=== PATIENT | female | born 1945 | race Caucasian/White ===

== ENCOUNTER 2019-09-12 09:39 | Emergency (ER) | payer MEDICARE, OTHER ==
[~2019-09-12] VITALS: Ht 172.7 cm; Wt 83.9 kg
[2019-09-12] MEDS ORDERED: AMLODIPINE BESY10 MG PO (09:50)
[2019-09-12] MEDS ORDERED: CALCIUM CARBON500 MG PO (09:51)
[2019-09-12] MEDS ORDERED: CELEBREX50 MG PO (09:51)
[2019-09-12] MEDS ORDERED: TESSALON PERLE100 M1 PO (09:51)
[2019-09-12] MEDS ORDERED: CHILDREN'S ASPI81 MG PO (09:51)
[2019-09-12] MEDS ORDERED: MULTI VITAMIN1 EACH PO (09:52)
[2019-09-12] MEDS ORDERED: ELOCON15 GM TOP (09:52)
[2019-09-12] MEDS ORDERED: ESTRACE42.5 GM (09:52)
[2019-09-12] MEDS ORDERED: KLOR-CON 10 ER10 MEQ PO (09:53)
[2019-09-12] MEDS ORDERED: LEVAQUIN 500 M500 M3 PO (09:53)
[2019-09-12] MEDS ORDERED: HYDROCHLOROTH12.5 M2 PO (09:53)
[2019-09-12] MEDS ORDERED: PROTONIX 20 MG20 MG PO (09:53)
[2019-09-12] MEDS ORDERED: MELATONIN3 M1 PO (09:53)
[2019-09-12] MEDS ORDERED: IMITREX100 MG PO (09:53)
[2019-09-12] MEDS ORDERED: AMBIEN 5 MG TABL5 M1 PO (09:54)
[2019-09-12] MEDS ORDERED: ZOCOR 20 MG TAB20 M1 PO (09:54)
[2019-09-12] MEDS ORDERED: TEMOVATE15 GM TOP (09:54)
[2019-09-12] MEDS ORDERED: PREDNISONE 20 M20 M1 PO (09:54)
[2019-09-12] MEDS ORDERED: RHINOCORT ALL8.43 ML NASAL (09:54)
[2019-09-12 10:10] LABS: ABSOLUTE BASOPHILS 0.1 thou/uL (0.0-0.2); ABSOLUTE LYMPHOCYTES 5.3 thou/uL (0.8-5.3); ABSOLUTE MONOCYTES 1.6 thou/uL (0.0-1.2); ABSOLUTE NEUTROPHILS 11.1 thou/uL (1.6-8.1); BASOPHILS 0.7 %; CALCIUM 9.3 mg/dL (8.5-10.1); EOSINOPHILS 0.1 %; HEMATOCRIT 39.4 % (37.0-47.0); LYMPHOCYTES 29.2 %; MONOCYTES 8.6 %; NUCLEATED RBCS 0 /100WBC; PLATELET COUNT* 244 thou/uL (150-400); POLYS 61.4 %; POTASSIUM 3.6 mmol/L (3.5-5.1); RBC 4.19 mil/uL (4.20-5.00); RDW-CV 13.1 % (10.5-14.5); WBC 18.1 thou/uL (4.0-11.0)
[2019-09-12 10:15] LABS: INFLUENZA A ANTIGEN Negative (Negative); INFLUENZA B ANTIGEN Negative (Negative)
[2019-09-12 10:21] LABS: ALBUMIN 3.7 g/dL (3.4-5.0); TOTAL BILIRUBIN 0.4 mg/dL (<0.1-1.0); TOTAL PROTEIN 6.8 g/dL (6.4-8.2)
[2019-09-12 10:56] LABS: APTT 21.9 Seconds (25.0-31.3); PROTIME 10.1 Seconds (9.20-11.50)
[2019-09-12] MEDS ORDERED: IPRAT-ALBUT 0.5-3 ML INH (11:36)
[2019-09-12] MEDS ORDERED: PROMETHAZINE-C473 ML PO (11:36)
[2019-09-12] MEDS ORDERED: NEBULIZER MISCELL (11:36)
[2019-09-12 13:00] VITALS: BP 145/85
--- NOTE | 2019-09-12 14:39 | EKG ---
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1945 Requested By: Lynda Hess Order Number: [id number] MD: Wilmar Morris Measurements Intervals [place] Rate: 60 P: -8 PA: 168 QRS: -30 QRSD: 81 T: 51 QT: 381 QTc: 381 Interpretive Statements Sinus rhythm Left axis deviation Abnormal R-wave progression, late transition No previous ECG available for comparison Electronically Signed On 09-12-2019 14:38:29 BANKING CENTER MANAGER by Wilmar Morris [email or web address] <ELECTRONICALLY SIGNED> By: Wilmar Morris MD, [facility] 09/12/19 1438 0948 09 Wilmar Morris MD, FACC /EPI
== END 2019-09-12 13:00 | disposition home or self-care (01) ==
LOC: M.ERS 09:39
PROVIDERS: Personal Emergency Response Attendant
DX: J06.9 Acute upper respiratory infection, unspecified (principal); G43.909 Migraine, unspecified, not intractable, without status migrainosus; I10 Essential (primary) hypertension; E78.00 Pure hypercholesterolemia, unspecified; M19.90 Unspecified osteoarthritis, unspecified site; K21.9 Gastro-esophageal reflux disease without esophagitis; Z88.0 Allergy status to penicillin; Z88.2 Allergy status to sulfonamides; Z88.1 Allergy status to other antibiotic agents; Z88.8 Allergy status to other drugs, medicaments and biological substances

== ENCOUNTER 2019-09-29 14:20 | Emergency (ER) | payer MEDICARE, OTHER ==
[~2019-09-29] VITALS: Ht 172.7 cm; Wt 83.9 kg
--- NOTE | ~2019-09-29 | EKG ---
[place] [address] ELECTROCARDIOGRAM REPORT Name: AZAEL AMAYA Room: [facility]#: [id number] Admission: 09/29/19 Attend Phys: Discharge: Date of : 47 Date of Service: 09/29/19 1423 Report #: [id number] THIS REPORT FOR: cc: Lucía Simpson MD, Sharon R. 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
[~2019-09-29 14:20] MED LIST: AMBIEN 5 MG TABL5 M1 PO; AMLODIPINE BESY10 MG PO; CALCIUM CARBON500 MG PO; CELEBREX50 MG PO; CHILDREN'S ASPI81 MG PO; ELOCON15 GM TOP; ESTRACE42.5 GM; HYDROCHLOROTH12.5 M2 PO; IMITREX100 MG PO; IPRAT-ALBUT 0.5-3 ML INH; KLOR-CON 10 ER10 MEQ PO; LEVAQUIN 500 M500 M3 PO; MELATONIN3 M1 PO; MULTI VITAMIN1 EACH PO; NEBULIZER MISCELL; PREDNISONE 20 M20 M1 PO; PROMETHAZINE-C473 ML PO; PROTONIX 20 MG20 MG PO; RHINOCORT ALL8.43 ML NASAL; TEMOVATE15 GM TOP; TESSALON PERLE100 M1 PO; ZOCOR 20 MG TAB20 M1 PO
[2019-09-29 14:48] LABS: ABSOLUTE BASOPHILS 0.1 thou/uL (0.0-0.2); ABSOLUTE EOSINOPHILS 0.3 thou/uL (0.0-0.7); ABSOLUTE LYMPHOCYTES 2.5 thou/uL (0.8-5.3); ABSOLUTE MONOCYTES 0.5 thou/uL (0.0-1.2); ABSOLUTE NEUTROPHILS 2.7 thou/uL (1.6-8.1); BASOPHILS 1.1 %; EOSINOPHILS 5.5 %; HEMATOCRIT 37.8 % (37.0-47.0); HEMOGLOBIN 12.9 gm/dL (12.0-15.0); LYMPHOCYTES 40.7 %; MCHC 34.2 g/dL (28.0-37.0); MCV 93.4 fL (80.0-100.0); MONOCYTES 8.4 %; MPV 7.7 fl. (7.2-11.1); NUCLEATED RBCS 0 /100WBC; PLATELET COUNT* 205 thou/uL (150-400); POLYS 44.3 %; RBC 4.04 mil/uL (4.20-5.00); RDW-CV 12.6 % (10.5-14.5); WBC 6.1 thou/uL (4.0-11.0)
[2019-09-29 14:54] LABS: CALCIUM 9.1 mg/dL (8.5-10.1); POTASSIUM 3.7 mmol/L (3.5-5.1)
[2019-09-29 15:10] LABS: ALBUMIN 3.8 g/dL (3.4-5.0); MAGNESIUM 1.9 mg/dL (1.8-2.4); TOTAL BILIRUBIN 0.2 mg/dL (<0.1-1.0); TOTAL PROTEIN 6.6 g/dL (6.4-8.2)
[2019-09-29] MEDS ORDERED: PREDNISONE50 MG PO (16:02)
[2019-09-29] MEDS ORDERED: NORCO 5-325 TA1 EAC1 PO (16:02)
[2019-09-29 16:18] VITALS: BP 118/50
== END 2019-09-29 16:19 | disposition home or self-care (01) ==
LOC: M.ERS 14:20
PROVIDERS: Emergency Medicine Emergency Medical Services
DX: R07.89 Other chest pain (principal); M54.9 Dorsalgia, unspecified; G43.909 Migraine, unspecified, not intractable, without status migrainosus; I10 Essential (primary) hypertension; E78.00 Pure hypercholesterolemia, unspecified; M19.90 Unspecified osteoarthritis, unspecified site; K21.9 Gastro-esophageal reflux disease without esophagitis; Z88.0 Allergy status to penicillin; Z88.1 Allergy status to other antibiotic agents; Z88.5 Allergy status to narcotic agent; Z88.8 Allergy status to other drugs, medicaments and biological substances

== ENCOUNTER 2019-10-06 08:26 | Emergency (ER) | payer MEDICARE, OTHER ==
[~2019-10-06] VITALS: Ht 172.7 cm; Wt 86.2 kg
--- NOTE | ~2019-10-06 | EKG ---
[place] [address] ELECTROCARDIOGRAM REPORT Name: [facility]EL AMAYA [id number] Admission: 10/06/19 Attend Phys: Discharge: 10/06/19 Date of : 47 Date of Service: 10/06/19928 Report #: [id number] THIS REPORT FOR: cc: Lucía Simpson MD, Sharon R. MD Epiphany, Epiphany MD ~ THIS REPORT FOR: //name// [facility] ED Test Date: 2019-10-06 Test Time: 09:29:56 Pat Name: AZAEL AMAYA Department: Room: Gender: F Certified Physician Assistant: JUAN : 1945 Requested By: Michael Hernandez Order Number: [id number] MD: Measurements Intervals [place] Rate: 94 P: 33 [place]: 159 QRS: -17 QRSD: 82 T: 54 QT: 376 QTc: 471 Interpretive Statements Sinus rhythm Borderline left axis deviation Compared to ECG 09/29/2019 14:23:49 No significant changes [email or web address] By: 8 8 Epiphany Epiphany, [place] /EPI
[~2019-10-06 08:26] MED LIST changes: +NORCO 5-325 TA1 EAC1 PO; +PREDNISONE50 MG PO
[2019-10-06 09:19] LABS: ABSOLUTE EOSINOPHILS 0.3 thou/uL (0.0-0.7); ABSOLUTE LYMPHOCYTES 1.4 thou/uL (0.8-5.3); ABSOLUTE MONOCYTES 1.2 thou/uL (0.0-1.2); ABSOLUTE NEUTROPHILS 7.3 thou/uL (1.6-8.1); BASOPHILS 0.5 %; EOSINOPHILS 2.9 %; HEMATOCRIT 38.1 % (37.0-47.0); HEMOGLOBIN 13.1 gm/dL (12.0-15.0); LYMPHOCYTES 13.8 %; MCH 32.3 pg (26.0-34.0); MCHC 34.5 g/dL (28.0-37.0); MCV 93.8 fL (80.0-100.0); MONOCYTES 11.6 %; MPV 7.1 fl. (7.2-11.1); NUCLEATED RBCS 0 /100WBC; PLATELET COUNT* 188 thou/uL (150-400); POLYS 71.2 %; RBC 4.06 mil/uL (4.20-5.00); RDW-CV 13.3 % (10.5-14.5); WBC 10.3 thou/uL (4.0-11.0)
[2019-10-06 09:21] LABS: INFLUENZA A ANTIGEN Positive (Negative); INFLUENZA B ANTIGEN Negative (Negative)
[2019-10-06 09:35] LABS: CALCIUM 9.3 mg/dL (8.5-10.1)
[2019-10-06 09:46] LABS: ALBUMIN 3.4 g/dL (3.4-5.0); APTT 26.2 Seconds (25.0-31.3); PROTIME 10.7 Seconds (9.20-11.50); TOTAL BILIRUBIN 0.3 mg/dL (<0.1-1.0); TOTAL PROTEIN 6.5 g/dL (6.4-8.2)
[2019-10-06] MEDS ORDERED: TAMIFLU75 MG PO (10:00)
[2019-10-06] MEDS ORDERED: NORCO 5-325 TA1 EAC1 PO (10:00)
[2019-10-06 10:23] VITALS: BP 143/44
== END 2019-10-06 10:25 | disposition home or self-care (01) ==
LOC: M.ERS 08:26
PROVIDERS: Emergency Medicine Emergency Medical Services
DX: J10.1 Influenza due to other identified influenza virus with other respiratory manifestations (principal); I10 Essential (primary) hypertension; E78.00 Pure hypercholesterolemia, unspecified; K21.9 Gastro-esophageal reflux disease without esophagitis; M19.90 Unspecified osteoarthritis, unspecified site; G43.909 Migraine, unspecified, not intractable, without status migrainosus; Z88.0 Allergy status to penicillin; Z88.1 Allergy status to other antibiotic agents; Z88.2 Allergy status to sulfonamides; Z88.6 Allergy status to analgesic agent; Z88.8 Allergy status to other drugs, medicaments and biological substances

== ENCOUNTER → 2019-11-13 | Outpatient (CLI) | payer MEDICARE, OTHER ==
[~2019-11-13] MED LIST changes: +TAMIFLU75 MG PO
--- NOTE | 2019-11-13 14:33 | 2DMMODE ---
[place] [address] 2 D/M-MODE ECHOCARDIOGRAM Name: AZAEL AMAYA Room: [facility]#: [id number] Admission: 11/13/19 Attend Phys: Zacarias Dimas MD Discharge: Date of : 47 Date of Service: 11/13/19 1432 Report #: [id number] THIS REPORT FOR: cc: Lucía Simpson MD, Sharon R. MD Blick, David R. MD [facility] ~ APPROVED REPORT Study performed: 11/13/2019 12:52:28 EXAM: Comprehensive 2D, Doppler, and color-flow Echocardiogram Patient Location: Out-Patient BSA: 2.00 HR: 60 bpm BP: 122/66 mmHg Other Information Study Quality: Good Indications Dyspnea Chest Pain 2D Dimensions IVSd: 11.18 (7-11mm) LVOT Diam: 19.46 (18-24mm) LVDd: 44.00 mm PWd: 11.28 (7-11mm) Ascending Ao: 29.55 (22-36mm) LVDs: 24.93 (25-40mm) Aortic Root: 26.64 mm Volumes Left Atrial Volume (Systole) LA ESV Index: 15.20 mL/m2 Aortic Valve AoV Peak Eliseo.: 1.45 m/s AO Peak Gr.: 8.46 mmHg LVOT Max P.88 mmHg AO Mean Gr.: 5.47 mmHg LVOT Mean P.30 mmHg LVOT Max V: 1.21 m/s AO V2 VTI: 34.38 cm LVOT Mean V: 0.85 m/s CLARICE (VTI): 2.46 cm2 LVOT V1 VTI: 28.40 [place] [address] 2 D/M-MODE ECHOCARDIOGRAM Name: AZAEL AMAYA Room: [facility]#: [id number] Admission: 11/13/19 Attend Phys: Zacarias Dimas MD Discharge: Date of : 47 Date of Service: 11/13/19 1432 Report #: [id number] E/A Ratio: 0.71 MV Decel. Time: 323.22 ms MV E Max Eliseo.: 0.67 m/s MV PHT: 93.73 ms MVA (PHT): 2.35 cm2 TDI E/Lateral E': 9.57 E/Medial E': 6.70 Medial E' Eliseo.: 0.10 m/s Lateral E' Eliseo.: 0.07 m/s Pulmonary Valve PV Peak Eliseo.: 1.15 m/s PV Peak Gr.: 5.25 mmHg Tricuspid Valve RAP Estimate: 5.00 mmHg TR Peak Gr.: 16.37 mmHg RVSP: 21.37 mmHg PA Pressure: 21.37 mmHg Left Ventricle The left ventricle is normal size. There is normal LV segmental wall motion. There is normal left ventricular wall thickness. Left ventricular systolic function is normal. The left ventricular ejection fraction is within the normal range. LVEF is 55-60%. Grade I - abnormal relaxation pattern. Right Ventricle The right ventricle is normal size. The right ventricular systolic function is normal. Atria The left atrium size is normal. The right atrium size is normal. Aortic Valve The aortic valve is normal in structure. No aortic regurgitation is present. There is no aortic valvular stenosis. Mitral Valve The mitral valve is normal in structure. There is no mitral valve regurgitation noted. No evidence of mitral valve stenosis. Tricuspid Valve The tricuspid valve is normal in structure. Trace [place]icus[place] [address] 2 D/M-MODE ECHOCARDIOGRAM Name: AZAEL AMAYA Room: [facility]#: [id number] Admission: 11/13/19 Attend Phys: Zacarias Dimas MD Discharge: Date of : 47 Date of Service: 11/13/19 1432 Report #: [id number] Pulmonic Valve The pulmonary valve is normal in structure. There is no pulmonic valvular regurgitation. Great Vessels The aortic root is normal in size. IVC is normal in size and collapses >50% with inspiration. Pericardium There is no pericardial effusion. <Conclusion> Left ventricular systolic function is normal. The left ventricular ejection fraction is within the normal range. <ELECTRONICALLY SIGNED> By: Zacarias Dimas MD, FACC 11/13/19 143 143 143 Zacarias Dimas MD, FACC /INF
--- NOTE | 2019-11-13 17:54 | CARDNUC ---
[place] [address] CARDIAC NUCLEAR IMAGING REPORT Name: MONIQUEAZAEL D Room: [facility]#: [id number] Admission: 11/13/19 Attend Phys: Zacarias Dimas MD Discharge: Date of : 47 Date of Service: 11/13/19 1753 Report #: [id number] THIS REPORT FOR: cc: Lucía Simpson MD, Sharon R. MD Liston, Michael J. MD [facility] ~ APPROVED REPORT Study performed: 11/13/2019 15:19:52 Exam: Nuclear Stress Test Indication: Chest pain, Dyspnea, Edema. Patient Location: Out-Patient Stress Tech: Massiel Gomez Stress Nurse: Cherri Hendrix R.N. Ht: 5 ft 9 in Wt: 195 lbs BSA: 2.04 m2 BMI: 28.79 Medical History Medical History: Angina, Fatigue, HTN, Hyperlipidemia, SOB, Weakness, Pneumonia, chronic cough, Migraines, LE edema, Vertigo. Medications: Amlodipine, ASA 81 mg, HCTZ, K-Cl, Simvastatin, Lisinopril. Allergies: Codeine, Lisinopril, Penicillins, Sulfa ABT, Triamterene, Amlodipine, Nifedipine. Cardiac Risk Factors: Age, FHX of CAD, HTN, Hyperlipidemia, SOB, Edema. Previous Cardiac Procedures: None Pretest Chest Pain Characteristics: Back between shoulder blades. Exercise History: Indeterminate Physical Disabilities: Dyspnea, weakness/fatigue. Meds Held (24 hrs): HCTZ. Stress Test Details Stress Test: Pharmacologic stress was paired with low level exercise. Reason for pharmacologic stress test: pain in back between shoulder blades, weakness/fatigue.. HR Resting HR: 64 bpm Max Heart Rate (APMHR): 147 bpm Max HR Achieved: 119 bpm Target HR (85% APMHR): 124 bpm % of APMHR: 80 [place] [address] CARDIAC NUCLEAR IMAGING REPORT Name: AZAEL AMAYA Room: [facility]#: [id number] Admission: 11/13/19 Attend Phys: Zaacrias Dimas MD Discharge: Date of : 47 Date of Service: 11/13/19 1753 Report #: [id number] Recovery HR: 77 bpm BP Resting BP: 141/66 mmHg Max BP: 196/54 mmHg ECG Resting ECG: Sinus Rhythm Stress ECG: Sinus Tachycardia ST Change: None Arrhythmia: None Recovery ECG: Sinus Rhythm Recovery ST Change: None Recovery Arrhythmia: None Clinical Reason for Termination: Completed protocol Stress Symptoms: Dyspnea, Headache Exercise duration: 4 min 00 sec Exercise capacity: 2.30 METs The patient tolerated walking Lexiscan protocol without significant cardiac symptoms. Nurse Comments A 74 year old female presented for a walking Lexiscan r/t chest pain, dyspnea and edema. Test well tolerated. Recovery unremarkable with PO caffeine, effective. Patient was escorted by staff to Nuclear Medicine for imaging. Patient was stable and stated she felt good at that time. Stress ECG Conclusion The baseline 12-lead EKG show sinus rhythm without significant ST segment or T wave abnormality. EKGs obtained during and post walking Lexiscan protocol showed sinus rhythm and sinus tachycardia with no significant ST segment or T wave changes when compared to baseline. There were no stress-induced arrhythmias. NM EXAM: Myocardial Perfusion REST/STRESS Resting Data Rest SPECT myocardial perfusion imaging was performed in supine position 30 minutes following the intravenous injection of 10.9 mCi of Tc-99m Sestamibi. Time of rest injection: 13:45 The images were gated to evaluate regional wall motion and calculate left [place] [address] CARDIAC NUCLEAR IMAGING REPORT Name: AZAEL AMAYA Room: [facility]#: [id number] Admission: 11/13/19 Attend Phys: Zacarias Dimas MD Discharge: Date of : 47 Date of Service: 11/13/19 1753 Report #: [id number] Administration Route: IV Administration Site: Right AC Pharmacologic Stress Pharmacologic stress test was performed by injecting Regadenoson 0.4 mg IV push followed by the intravenous injection of 28.4 mCi of Tc-99m Sestamibi. Time of stress injection: 15:35 Administration Route: IV Administration Site: Right AC Heart Rate at time of stress injection: 84 bpm. Gated Stress SPECT was performed 45 minutes after stress injection. The images were gated to evaluate regional wall motion and calculate left ventricular ejection fraction. Study Quality Study: Good Artifact: No artifact Study Data At rest, the left ventricular ejection fraction was 82%.. Post stress, the left ventricular ejection was 84%.. TID = 1.10. Perfusion Perfusion images obtained at rest and post Lexiscan stress show uniform uptake of the radioisotope felt the myocardium without defect. Wall Motion Normal left ventricular wall motion. Nuclear Conclusion ECG Findings: negative for ischemia Clinical Findings: negative for ischemia Nuclear Findings: negative for ischemia Exercise Capacity: not assessed Left Ventricular Function: normal Risk Study: low Myocardial perfusion images show no defect to suggest infarct or ischemia. Left ventricular systolic function is normal on gated studies. This is a low risk study. <Conclusion> The baseline 12-lead EKG show sinus rhythm [place] [address] CARDIAC NUCLEAR IMAGING REPORT Name: AZAEL AMAYA [id number] Admission: 11/13/19 Attend Phys: Zacarias Dimas MD Discharge: Date of : 47 Date of Service: 11/13/19 1753 Report #: [id number] segment or T wave abnormality. EKGs obtained during and post walking Lexiscan protocol showed sinus rhythm and sinus tachycardia with no significant ST segment or T wave changes when compared to baseline. There were no stress-induced arrhythmias. <ELECTRONICALLY SIGNED> By: Wilmar Morris MD, FACC 11/13/191752 52 52 Wilmar Morris MD, FACC /INF
== END ==
LOC: M.CRD 12:48 → M.NUC 14:00
DX: R06.02 Shortness of breath (principal); I10 Essential (primary) hypertension; R07.9 Chest pain, unspecified; E78.5 Hyperlipidemia, unspecified; G43.909 Migraine, unspecified, not intractable, without status migrainosus; Z79.82 Long term (current) use of aspirin; Z79.899 Other long term (current) drug therapy; Z88.2 Allergy status to sulfonamides; Z88.0 Allergy status to penicillin; Z88.5 Allergy status to narcotic agent; Z88.8 Allergy status to other drugs, medicaments and biological substances